=== PATIENT | male | born 1995 | race Hispanic/Latino ===

== ENCOUNTER 2021-08-30 12:14 | Emergency (ER) | payer SELFPAY ==
[2021-08-30] MEDS ORDERED: NA CHLORIDE 0.9% 1,000 ML ONE (13:16)
[2021-08-30 13:18] LABS: Absolute Lymphocytes (CBC) 2.4 K/uL (0.7-4.9); Hematocrit 42.9 % (39.6-49.0); Lymphocytes % 23.4 % (15.3-44.8); MPV 10.1 fL (7.6-11.3); RBC Red Blood Cell Count 5.09 M/uL (4.33-5.43)
[2021-08-30 13:19] LABS: Urine Blood Trace-intact (Negative); Urine Glucose Negative (Negative); Urine Protein Trace (Negative); Urine pH 6.5 (5.0-7.0)
[2021-08-30 13:23] LABS: Protime INR 1.05
[2021-08-30 13:38] LABS: ALT/SGPT 36 U/L (12-78); AST/SGOT 15 U/L (15-37); Albumin 4.6 g/dL (3.4-5.0); Alkaline Phosphatase 87 U/L (45-117); BUN Blood Urea Nitrogen 9 mg/dL (7-18); Bicarbonate 26 mmol/L (21-32); Bilirubin Direct < 0.1 mg/dL (0-0.2); Bilirubin Total 0.4 mg/dL (0.2-1.0); Creatine Phosphokinase 171 U/L (39-308); Glucose Level 104 mg/dL (74-106); Potassium 3.5 mmol/L (3.5-5.1); Protein, Total 8.9 g/dL (6.4-8.2); Sodium Level 138 mmol/L (136-145)
[2021-08-30 13:38] LABS: Barbiturates NEGATIVE (NEGATIVE); Benzodiazepines NEGATIVE (NEGATIVE); Cocaine NEGATIVE (NEGATIVE); METHAMPHETAM NEGATIVE (NEGATIVE); Methadone NEGATIVE (NEGATIVE); Opiates NEGATIVE (NEGATIVE); Phencyclidine NEGATIVE (NEGATIVE); THC Cannibis NEGATIVE (NEGATIVE)
[2021-08-30 14:19] LABS: SARS-COV-2 RT PCR NEGATIVE (NEGATIVE)
--- NOTE | 2021-08-30 16:15 | RAD REPORT ---
EXAM DESCRIPTION: CT - Chest For Pe Angio - 08/30/2021 4:03 pm CLINICAL HISTORY: CHEST PAIN COMPARISON: No comparisons TECHNIQUE: Dynamically enhanced 3 mm thick images of the chest were obtained during administration o f approximately 150mL Isovue 370 IV contrast. Coronal and oblique MIP reconstruction images were gene rated and reviewed. Exam utilizes a protocol to evaluate the pulmonary arterial tree. All CT scans are performed using dose optimization technique as appropriate and may include automated exposure control or mA/KV adjustment according to patient size. FINDINGS: No pulmonary emboli are identified. The aorta as imaged shows no acute or suspicious finding. No pericardial thickening or effusion. No infiltrate or mass in the lung parenchyma. No pleural effusion or pleural thickening. No mediastinal or hilar suspicious masses. No chest wall masses or abnormal axillary lymphadenopathy. IMPRESSION: No pulmonary emboli identified. No other significant or suspicious findings.
--- NOTE | 2021-08-30 17:15 | ER ---
Nurse's Notes [facility] Name: Aldo Jaime Age: 26 yrs Sex: Male : 1995 Arrival Date: 08/30/2021 Time: 12:17 Bed 10 Private MD: Diagnosis: Palpitations Presentation: 08/30 12:28 Chief complaint: Patient states: "I have been not able to eat or drink in a couple of jd3 days as well as my chest is hurting with having fever's.". Coronavirus screen: cough unrelated to allergies, fatigue, muscle pain, nausea, Client presents with at least one sign or symptom that may indicate coronavirus-19. Standard/surgical mask placed on the client. Provider contacted for isolation considerations. Ebola Screen: No symptoms or risks identified at this time. Initial Sepsis Screen: Does the patient meet any 2 criteria? No. Patient's initial sepsis screen is negative. Does the patient have a suspected source of infection? No. Patient's initial sepsis screen is negative. Risk Assessment: Do you want to hurt yourself or someone else? Patient reports no desire to harm self or others. Onset of symptoms was August 30, 2021. 12:28 Method Of Arrival: Ambulatory jd3 12:28 Acuity: JEREMY 3 jd3 Triage Assessment: 13:09 General: Appears in no apparent distress. slender, Behavior is calm, cooperative, jh5 appropriate for age. Pain: Complains of pain in abdomen. Cardiovascular: No deficits noted. Historical: - Allergies: 12:29 No Known Allergies; jd3 - Home Meds: 12:29 None [Active]; jd3 - PMHx: 12:29 None; jd3 - PSHx: 12:29 None; jd3 - Immunization history:: Client reports receiving the Gino \\T\\ Gino single-dose vaccine. - Social history:: Smoking status: Patient denies any tobacco usage or history of. Screenin:08 Abuse screen: Denies threats or abuse. Denies injuries from another. Nutritional jh5 screening: No deficits noted. Tuberculosis screening: No symptoms or risk factors identified. Fall Risk None identified. Assessment: 13:10 Pain: Pain does not radiate. Pain began gradually. jh5 Vital Signs: 12:30 BP 151 / 120; Pulse 100; Resp 20 S; Temp 99.0(TE); Pulse Ox 100% on R/A; Weight 79.38 jd3 kg (R); Height 5 ft. 9 in. (175.26 cm) (R); Pain 9/10; 12:30 Body Mass Index 25.84 (79.38 kg, 175.26 cm) j ED Course: 12:17 Patient arrived in ED. mr 12:29 Triage completed. jd3 12:31 Arm band placed on. [facility] 12:38 Mohsen Mcintyre PA is PHCP. [facility] 12:38 Santhosh Lott MD is Attending Physician. [facility] 12:38 Patient has correct armband on for positive identification. Bed in low position. Call [facility] light in reach. Adult w/ patient. Pulse ox on. NIBP on. 12:38 COVID-19/FLU A+B (Document "Date of Onset" if Symptomatic) Sent. [facility] 12:38 COVID swab sent to lab. [facility] 12:52 Ann Carrizales, RN is Primary Nurse. [facility] 13:08 No provider procedures requiring assistance completed. Inserted saline lock:. [facility] 13:10 Patient maintains SpO2 saturation greater than 95% on room air. [facility] 13:13 Initial lab(s) drawn, by [facility], sent to lab. Urine collected: EKG done, by ED staff, [facility] reviewed by Mohsen BRYSON. Inserted saline lock: 20 gauge in right antecubital area, using aseptic technique. Blood collected. 13:14 CK Sent. 5 13:14 Troponin High Sensitivity Sent. 5 13:14 Acetaminophen Sent. 5 13:14 Basic Metabolic Panel Sent. 5 13:14 CBC with Diff Sent. 5 13:14 ETOH Level Sent. 5 13:14 Hepatic Function Sent. 5 13:14 PT-INR Sent. 5 13:14 Ptt, Activated Sent. 5 13:14 Salicylate Sent. 5 13:15 Urine Drug Screen Sent. 5 16:00 Inserted saline lock: 22 gauge in left antecubital area, using aseptic technique. 16:04 CT Chest For PE Angio In Process Unspecified. EDMS 17:15 Hieu Renee MD is Referral Physician. [facility] Administered Medications: 13:17 Drug: NS 0.9% 1000 ml Route: IV; Rate: 1 bolus; Site: right antecubital; jh5 Outcome: 17:15 Discharge ordered by MD. adrian 17:22 Patient left the ED. jh5 Signatures: Dispatcher [employer] EDMS Mohsen Mcintyre PA PA jmm Rivera, Mary mr Williams, Irene, RN Sobia Wilder Andrzej Handley RN RN jd3 Ann Carrizales RN RN jh5
--- NOTE | 2021-08-30 17:16 | EDPHYS ---
Physician Documentation [facility] Name: Aldo Jaime Age: 26 yrs Sex: Male : 1995 Arrival Date: 08/30/2021 Time: 12:17 Bed 10 Private MD: ED Physician Santhosh Lott HPI: 08/30 12:32 This 26 yrs old Male presents to ER via Ambulatory with complaints of Chest jmm Pain, Abdominal Pain, Unable to sleep. 12:32 The patient presents with a history of heart racing. Onset: The symptoms/episode jmm began/occurred acutely, 2 day(s) ago. Duration: The patient or guardian reports multiple episodes. Modifying factors: The symptoms are aggravated by nothing. The symptoms are alleviated by nothing. This is a 26-year-old male with no known medical problems presents emerge department with complaints of palpitations and chest pain beginning approximately 2 days ago. Patient states he has been unable to sleep due to the discomfort. Pain does not radiate. Patient states he also has been unable to eat or drink well due to the discomfort. Denies abdominal pain or vomiting. Denies fever.. Historical: - Allergies: 12:29 No Known Allergies; jd3 - Home Meds: 12:29 None [Active]; jd3 - PMHx: 12:29 None; jd3 - PSHx: 12:29 None; jd3 - Immunization history:: Client reports receiving the Gino \\T\\ Gino single-dose vaccine. - Social history:: Smoking status: Patient denies any tobacco usage or history of. ROS: 12:32 Constitutional: Negative for fever, chills, and weight loss, Respiratory: Negative for jmm shortness of breath, cough, wheezing, and pleuritic chest pain. 12:32 Cardiovascular: Positive for chest pain, palpitations. 12:32 Abdomen/GI: Positive for nausea. 12:32 All other systems are negative. Exam: 12:32 Constitutional: This is a well developed, well nourished patient who is awake, alert, jmm and in no acute distress. Head/Face: atraumatic. Eyes: EOMI, no conjunctival erythema appreciated ENT: Moist Mucus Membranes Neck: Trachea midline, Supple Chest/axilla: Normal chest wall appearance and motion. Cardiovascular: Regular rate and rhythm. No edema appreciated Respiratory: Normal respirations, no respiratory distress appreciated Abdomen/GI: Non distended, soft Back: Normal ROM Skin: General appearance color normal MS/ Extremity: Moves all extremities, no obvious deformities appreciated, no edema noted to the lower extremities Neuro: Awake and alert Psych: Behavior is normal, Mood is normal, Patient is cooperative and pleasant Vital Signs: 12:30 BP 151 / 120; Pulse 100; Resp 20 S; Temp 99.0(TE); Pulse Ox 100% on R/A; Weight 79.38 jd3 kg (R); Height 5 ft. 9 in. (175.26 cm) (R); Pain 9/10; 12:30 Body Mass Index 25.84 (79.38 kg, 175.26 cm) jd3 MDM: 12:49 Patient medically screened. [facility] 17:14 Data reviewed: vital signs, nurses notes. [facility] 17:14 Counseling: I had a detailed discussion with the patient and/or guardian regarding: the [facility] historical points, exam findings, and any diagnostic results supporting the discharge/admit diagnosis, lab results, radiology results, the need for outpatient follow up, to return to the emergency department if symptoms worsen or persist or if there are any questions or concerns that arise at home. ED course: Patient states feeling much better after IV fluids. Patient advised follow-up with cardiology for further evaluation. Patient otherwise given strict return precautions. Patient understood and agrees plan of care.. 08/30 12:32 Order name: COVID-19/FLU A+B (Document "Date of Onset" if Symptomatic); Complete Time: jd3 14:35 08/30 12:49 Order name: Acetaminophen; Complete Time: 13:39 [facility] 08/30 12:49 Order name: Basic Metabolic Panel; Complete Time: 13:39 [facility] 08/30 12:49 Order name: CBC with Diff; Complete Time: 13:26 [facility] 08/30 12:49 Order name: ETOH Level; Complete Time: 13:39 [facility] 08/30 12:49 Order name: Hepatic Function; Complete Time: 13:39 [facility] 08/30 12:49 Order name: PT-INR; Complete Time: 13:26 [facility] 08/30 12:49 Order name: Ptt, Activated; Complete Time: 13:26 [facility] 08/30 12:49 Order name: Salicylate; Complete Time: 14:35 [facility] 08/30 12:49 Order name: Urine Drug Screen; Complete Time: 13:39 [facility] 08/30 12:49 Order name: Troponin High Sensitivity; Complete Time: 13:39 [facility] 08/30 12:49 Order name: CK; Complete Time: 13:39 [facility] 08/30 13:19 Order name: Urine Dipstick-Ancillary; Complete Time: 13:26 [facility] 08/30 12:49 Order name: EKG; Complete Time: 12:50 [facility] 08/30 12:49 Order name: EKG - Nurse/Tech; Complete Time: 13:09 [facility] 08/30 12:49 Order name: IV Saline Lock; Complete Time: 13:14 [facility] 08/30 12:49 Order name: Labs collected and sent; Complete Time: 13:14 [facility] 08/30 12:49 Order name: Urine Dipstick-Ancillary (obtain specimen); Complete Time: 13:15 [facility] 08/30 15:08 Order name: CT Chest For PE Angio; Complete Time: 16:17 [facility] Administered Medications: 13:17 Drug: NS 0.9% 1000 ml Route: IV; Rate: 1 bolus; Site: right antecubital; jh5 Disposition: 19:04 Co-signature as Attending Physician, Santhosh Lott MD I agree with the assessment and kdr plan of care. Disposition Summary: 08/30/21 17:15 Discharge Ordered Location: Home [facility] Condition: Stable [facility] Diagnosis - Palpitations [facility] Followup: [facility] - With: Hieu Renee MD - When: 2 - 3 days - Reason: Recheck today's complaints, Continuance of care, Re-evaluation by your physician Discharge Instructions: - Discharge Summary Sheet [facility] - Palpitations [facility] Forms: - Medication Reconciliation Form [facility] - Thank You Letter [facility] - Antibiotic Education [facility] - Prescription Opioid Use [facility] Prescriptions: - Hydroxyzine HCl 50 mg Oral Tablet - take 1 tablet by ORAL route every 8 hours As needed; 30 tablet; Refills: 0, [facility] Product Selection Permitted Signatures: Dispatcher [employer] Santhosh Webb MD MD kdr Mickail, Joel, PA PA [facility] Andrzej Gooden RN RN Ann Joyce RN RN jh5 Corrections: (The following items were deleted from the chart) 13:09 12:49 Suicide Screening ([place]) ordered. [facility] jh5
[2021-08-30] MEDS ORDERED: ONDANSETRON 4 MG/2 ML VIAL ONE (17:43)
[2021-08-30] MEDS ORDERED: RSI MEDICATION KIT IV ONE (17:43)
[2021-08-30 23:57] VITALS: BP 151/120; TEMP 99; O2SAT 100
--- NOTE | 2021-08-31 08:25 | EKG ---
Test Date: 2021-08-30 Test Time: 13:08:35 Narrow Gauge Brakeman: FAUZIA MEASUREMENT RESULTS: Intervals: Rate: 86 [place]: 132 QRSD: 84 QT: 360 QTc: 430 [place]: P: 52 [place]: 132 QRS: 79 T: -10 INTERPRETIVE STATEMENTS: Normal sinus rhythm Nonspecific T wave abnormality Abnormal ECG No previous ECG available for comparison Electronically Signed On 08-31-21 08:22:30 [employer] MACHINE OPERATOR by Gurwinder Alvarenga
== END 2021-08-30 17:22 | disposition home or self-care (01) ==
LOC: ER 12:14
DX: R00.2 Palpitations (principal); Z20.822 Contact with and (suspected) exposure to COVID-19
CPT/HCPCS: 0240U; 36415; 71275; 80048; 80076; 80307; 80320; 80329; 81003; 82550; 84484; 85025; 85610; 85730; 93005; 99284; J2405; J7030; Q9967